=== PATIENT | male | born 1985 | race Caucasian/White ===

== ENCOUNTER 2018-01-18 15:26 | Emergency (ER) | payer BC ==
[~2018-01-18] VITALS: Ht 177.8 cm; Wt 104.3 kg
== END 2018-01-18 19:15 | disposition home or self-care (01) ==
LOC: ER 15:26
DX: S93.492A Sprain of other ligament of left ankle, initial encounter (principal); X50.0XXA Overexertion from strenuous movement or load, initial encounter; Y93.89 Activity, other specified; Y92.69 Other specified industrial and construction area as the place of occurrence of the external cause; Y99.8 Other external cause status